=== PATIENT | female | born 1990 | race Asian ===

== ENCOUNTER 2017-05-29 05:07 | Emergency (ER) | payer OTHER ==
[~2017-05-29] VITALS: Ht 165.1 cm; Wt 50.0 kg
[~2017-05-29 05:07] MED LIST: CYCL-36 PO; MOTR200T PO
[2017-05-29 05:11] VITALS: BP 111/79; PULSE 86; RESP 16; TEMP 98.1; O2SAT 99
[2017-05-29] MEDS ORDERED: SODIUM CHLOR 0.9% 1000 ML INJ 1,000 ML IV ONE (05:37)
[2017-05-29] MEDS ORDERED: ONDANSETRON HCL 4 MG/2 ML VIAL ONE (05:38)
[2017-05-29] MEDS ORDERED: ONDANSETRON HCL 4 MG/2 ML VIAL IVP ONE (05:45)
[2017-05-29] MEDS ORDERED: SODIUM CHLORIDE 0.9% FLUSH 10 ML FLUSH IVF PRN (05:45)
[2017-05-29] MEDS ORDERED: diphenhydrAMINE HCL 50 MG/ML VIAL IV PUSH ONE (05:45)
[2017-05-29 06:06] LABS: AUTOMATED NEUTROPHIL # 3.1 TH/MM3 (1.8-7.7); BASOPHIL # 0.1 TH/MM3 (0-0.2); BASOPHIL % 0.9 % (0.0-2.0); EOSINOPHIL # 0.8 TH/MM3 (0-0.4); EOSINOPHIL % 10.8 % (0.0-4.0); HEMATOCRIT 41.3 % (35.0-46.0); HEMO FLAGS DIFF FINAL; LYMPH % 38.7 % (9.0-44.0); LYMPHOCYTE # 2.7 TH/MM3 (1.0-4.8); MEAN CELL VOLUME 94.4 FL (80.0-100.0); MEAN CORPUSCULAR HEMOGLOBIN 32.2 PG (27.0-34.0); MEAN CORPUSCULAR HGB CONC 34.1 % (32.0-36.0); MONO % 5.4 % (0.0-8.0); NEUT % 44.2 % (16.0-70.0); PLATELET COUNT 244 TH/MM3 (150-450); RED BLOOD COUNT 4.37 MIL/MM3 (4.00-5.30)
[2017-05-29] MEDS ORDERED: METOCLOPRAMIDE INJ 10 MG in SODIUM CHLORIDE 0.9% INJ 50 ML IV ONE (06:15)
--- NOTE | 2017-05-29 06:19 | RADRPT ---
EXAM DATE/TIME: 05/29/2017 05:47 [place] COMPARISON: No previous studies available for comparison. INDICATIONS : Dizziness and right side head pain. RADIATION DOSE: 30.05 CTDIvol (mGy) MEDICAL HISTORY : None SURGICAL HISTORY : None. ENCOUNTER: Initial ACUITY: 1 day PAIN SCALE: 7/10 LOCATION: cranial TECHNIQUE: Multiple contiguous axial images were obtained of the head. Using automated exposure control and adj ustment of the mA and/or kV according to patient size, radiation dose was kept as low as reasonably a chievable to obtain optimal diagnostic quality images. DICOM format image data is available electro nically for review and comparison. FINDINGS: CEREBRUM: The ventricles are normal for age. No evidence of midline shift, mass lesion, hemorrhage or acute in farction. No extra-axial fluid collections are seen. POSTERIOR FOSSA: The cerebellum and brainstem are intact. The 4th ventricle is midline. The cerebellopontine angle i s unremarkable. EXTRACRANIAL: The visualized portion of the orbits is intact. SKULL: The calvaria is intact. No evidence of skull fracture. CONCLUSION: Normal examination. Clint Nava MD on May 29, 2017 at 6:17 Board Certified Radiologist. This report was verified electronically.
[2017-05-29 06:32] LABS: APTT (PATIENT) 27.3 SEC (24.3-30.1); PROTHROMBIN TIME - PATIENT 10.6 SEC (9.8-11.6)
--- NOTE | 2017-05-29 06:33 | PD ---
HPI Chief Complaint: Headache Time Seen by Provider: 05:19 Travel History International Travel<30 days: No Contact w/Intl Traveler<30days: No Traveled to known affect area: No History of Present Illness HPI Patient is a 26 year old female who comes in complaining of headache, nausea and vomiting. She says it started a few hours ago. She says the pain is on the side of her head. She denies fever or chills. She says she has some dizziness. She says this has happened to her before when she was under a lot of stress, and she is currently under a lot of stress. She denies any trauma to her head. She denies drug or alcohol use. She denies any abdominal pain. She says she has had right sided back pain for a few months. She denies dysuria. PFSH Past Medical History Medical History: Denies Significant Hx Diminished Hearing: No Tetanus Vaccination: Unknown Influenza Vaccination: No ?: Not LMP: 4 WEEKS AGO Past Surgical History Other Surgery: Yes (RHINOPLASY 2X ) Social History Alcohol Use: Yes (OCASSIONALLY, ONCE A WEEK) Tobacco Use: Yes (1/2 PPD) Substance Use: No Allergies-Medications (Allergen,Severity, Reaction): Coded Allergies: No Known Allergies (Unverified , 05/29/17) Reported Meds & Prescriptions Reported Meds & Active Scripts Active Macrobid (Nitrofurantoin Monoh/Nitrofur Macro) 100 Mg Cap 100 Mg PO BID 10 Days Review of Systems Except as stated in HPI: all other systems reviewed are Neg General / Constitutional: No: Fever, Chills Eyes: No: Blurred Vision HENT: Positive: Headaches, Vertigo Cardiovascular: No: Chest Pain or Discomfort Respiratory: No: Shortness of Breath Gastrointestinal: Positive: Nausea, Vomiting, No: Abdominal Pain Genitourinary: Positive: Flank Pain, No: Dysuria Musculoskeletal: No: Pain Skin: No Rash, No Change in Pigmentation Neurologic: Positive: Dizziness, No: Weakness Physical Exam Narrative GENERAL: Awake and alert, in no acute distress. SKIN: Focused skin assessment warm/dry. HEAD: Atraumatic. Normocephalic. EYES: Pupils equal and round. No scleral icterus. EOMI, no nystagmus. ENT: Mucous membranes pink and moist. NECK: Trachea midline. No JVD. CARDIOVASCULAR: Regular rate and rhythm. No murmur appreciated. RESPIRATORY: No accessory muscle use. Clear to auscultation. Breath sounds equal bilaterally. GASTROINTESTINAL: Abdomen soft, non-tender, nondistended. MUSCULOSKELETAL: No obvious deformities. No clubbing. No cyanosis. No edema. Right CVA tenderness. NEUROLOGICAL: Awake and alert. No obvious cranial nerve deficits. Motor grossly within normal limits. Normal speech. PSYCHIATRIC: Appropriate mood and affect; insight and judgment normal. Data Data Last Documented VS Vital Signs Date Time Temp Pulse Resp B/P Pulse Ox O2 Delivery O2 Flow Rate FiO2 05/29/17 07:14 83 18 104/59 99 Room Air 05/29/17 05:11 98.1 Orders Ed Urine Pregnancytest Poc (05/29/17 05:37) Complete Blood Count With Diff (05/29/17 05:37) Comprehensive Metabolic Panel (05/29/17 05:37) Act Partial Throm Time (Ptt) (05/29/17 05:37) Prothrombin Time / Inr (Pt) (05/29/17 05:37) Urinalysis - C+S If Indicated (05/29/17 05:37) Ua Includes Microscopic (05/29/17 05:37) Ct Brain W/O Iv Contrast(Rout) (05/29/17 05:37) Ecg Monitoring (05/29/17 05:37) Iv Access Insert/Monitor (05/29/17 05:37) Oximetry (05/29/17 05:37) Ondansetron Inj (Zofran Inj) (05/29/17 05:45) Sodium Chloride 0.9% Flush (Ns Flush) (05/29/17 05:45) Sodium Chlor 0.9% 1000 Ml Inj (Ns 1000 M (05/29/17 05:37) Diphenhydramine Inj (Benadryl Inj) (05/29/17 05:45) Ondansetron Inj (Zofran Inj) (05/29/17 05:38) Alcohol (Ethanol) (05/29/17 05:40) Metoclopramide Inj (Reglan Inj) (05/29/17 06:15) Ketorolac Inj (Toradol Inj) (05/29/17 07:00) Urine Culture (05/29/17 07:00) Nitrofurantoin Monohyd Macrocr (Macrobid (05/29/17 07:30) Labs Laboratory Tests Test 05/29/17 05/29/17 05/29/17 05:40 06:05 07:00 White Blood Count 7.0 TH/MM3 Red Blood Count 4.37 MIL/MM3 Hemoglobin 14.1 GM/DL Hematocrit 41.3 % Mean Corpuscular Volume 94.4 FL Mean Corpuscular Hemoglobin 32.2 PG Mean Corpuscular Hemoglobin 34.1 % Concent Red Cell Distribution Width 13.0 % Platelet Count 244 TH/MM3 Mean Platelet Volume 8.6 FL Neutrophils (%) (Auto) 44.2 % Lymphocytes (%) (Auto) 38.7 % Monocytes (%) (Auto) 5.4 % Eosinophils (%) (Auto) 10.8 % Basophils (%) (Auto) 0.9 % Neutrophils # (Auto) 3.1 TH/MM3 Lymphocytes # (Auto) 2.7 TH/MM3 Monocytes # (Auto) 0.4 TH/MM3 Eosinophils # (Auto) 0.8 TH/MM3 Basophils # (Auto) 0.1 TH/MM3 CBC Comment DIFF FINAL Differential Comment Sodium Level 139 MEQ/L Potassium Level 3.7 MEQ/L Chloride Level 107 MEQ/L Carbon Dioxide Level 22.4 MEQ/L Anion Gap 10 MEQ/L Blood Urea Nitrogen 11 MG/DL Creatinine 0.47 MG/DL Estimat Glomerular Filtration 159 ML/MIN Rate Random Glucose 89 MG/DL Calcium Level 8.2 MG/DL Total Bilirubin 0.2 MG/DL Aspartate Amino Transf 15 U/L (AST/SGOT) Alanine Aminotransferase 18 U/L (ALT/SGPT) Alkaline Phosphatase 87 U/L Total Protein 8.4 GM/DL Albumin 4.1 GM/DL Ethyl Alcohol Level 196 MG/DL Prothrombin Time 10.6 SEC Prothromb Time International 1.0 RATIO Ratio Activated Partial 27.3 SEC Thromboplast Time Urine Color YELLOW Urine Turbidity HAZY Urine pH 5.5 Urine Specific Harper 1.017 Urine Protein NEG mg/dL Urine Glucose (UA) NEG mg/dL Urine Ketones NEG mg/dL Urine Occult Blood NEG Urine Nitrite NEG Urine Bilirubin NEG Urine Urobilinogen LESS THAN 2.0 MG/DL Urine Leukocyte Esterase NEG Urine RBC 1 /hpf Urine WBC 3 /hpf Urine Squamous Epithelial 3 /hpf Cells Urine Calcium Oxalate Crystals MOD /hpf Urine Bacteria MOD /hpf Urine Mucus FEW /lpf Microscopic Urinalysis Comment CULTURE INDICATED MDM Medical Decision Making Medical Screen Exam Complete: Yes Emergency Medical Condition: Yes Medical Record Reviewed: Yes Differential Diagnosis gastroenteritis vs migraine vs vertigo vs UTI vs pyelonephritis Narrative Course Patient is a 26 year old female who comes in complaining of headache with nausea and vomiting. Exam shows no neurologic abnormalities. IV established, labs sent. Labs show no acute abnormalities other than an alcohol level of 196. Given IVF, Zofran, Benadryl. CT head performed shows no acute abnormalities. She reports some continued nausea. Given a dose of Reglan. Given Toradol for continued headache. Patient is able to drink water without vomiting. Advised to drink plenty of fluids. Advised to take Tylenol or Ibuprofen as needed for pain. Advised to avoid alcohol. Advised to follow up with a primary care doctor. Advised to return to the ED as needed for any worsening symptoms. Diagnosis Primary Impression: Nausea & vomiting Qualified Code: R11.2 - Non-intractable vomiting with nausea, unspecified vomiting type Additional Impressions: Headache Qualified Code: R51 - Acute nonintractable headache, unspecified headache type Alcohol intoxication Qualified Code: F10.920 - Alcoholic intoxication without complication Patient Instructions: Acute Headache (ED), Acute Nausea and Vomiting (ED), Alcohol Intoxication (DC), General Instructions Additional Instructions: Drink plenty of fluids. Avoid alcohol use. Take Tylenol or Ibuprofen as needed for pain. Follow up with a primary care doctor. Return to the ED as needed for any worsening symptoms. Scripts Nitrofurantoin Monohydrate Macrocrystals (Macrobid)100 Mg [id number] Mg PO BID 10 Days Ref 0 Prov:Zuleyma Jarrett DO 05/29/17 Disposition: 01 DISCHARGE HOME Condition: Stable Prudence Anguiano MD May 29, 2017 06:33
[2017-05-29 06:34] LABS: ANION GAP 10 MEQ/L (5-15); AST (GOT) 15 U/L (15-37); BICARBONATE 22.4 MEQ/L (21.0-32.0); BLOOD UREA NITROGEN 11 MG/DL (7-18); CHLORIDE 107 MEQ/L (98-107); GLOMERULAR FILTRATION RATE 159 ML/MIN (>89); POTASSIUM 3.7 MEQ/L (3.5-5.1); SODIUM (NA) 139 MEQ/L (136-145)
[2017-05-29 06:35] LABS: ALCOHOL 196 MG/DL (0-5); ALT (GPT) 18 U/L (10-53)
[2017-05-29 06:37] LABS: ALKALINE PHOSPHATASE 87 U/L (45-117); TOTAL BILIRUBIN ADULT 0.2 MG/DL (0.2-1.0)
[2017-05-29] MEDS ORDERED: KETOROLAC TROMETHAMINE 30 MG/ML (IVP) VIAL IV PUSH ONE (07:00)
[2017-05-29 07:14] VITALS: BP 104/59; PULSE 83; RESP 18; O2SAT 99
[2017-05-29 07:21] LABS: BACTERIA, URINE MOD /hpf; BLOOD, URINE NEG (NEG); CALCIUM OXALATE CRYSTALS,URINE MOD /hpf; COMMENT (UR) CULTURE INDICATED; CULTURE IF INDICATED CULTURE INDICATED; GLUCOSE,URINE NEG (NEG); KETONE, URINE NEG (NEG); MUCUS URINE FEW /lpf (OCC); NITRITE,URINE NEG (NEG); PH, URINE 5.5 (5.0-8.5); SQUAMOUS EPITHELIAL CELL URINE 3 /hpf (0-5); URINE COLOR YELLOW (YELLW/STRAW)
[2017-05-29] MEDS ORDERED: NITROFURANTOIN MONOHYD MACROCR 100 MG CAP PO ONE (07:30)
[2017-05-29] MEDS ORDERED: MACR100C2 PO (07:30)
--- NOTE | 2017-05-29 07:30 | PD ---
Data Data Last Documented VS Vital Signs Date Time Temp Pulse Resp B/P Pulse Ox O2 Delivery O2 Flow Rate FiO2 05/29/17 07:14 83 18 104/59 99 Room Air 05/29/17 05:11 98.1 Orders Ed Urine Pregnancytest Poc (05/29/17 05:37) Complete Blood Count With Diff (05/29/17 05:37) Comprehensive Metabolic Panel (05/29/17 05:37) Act Partial Throm Time (Ptt) (05/29/17 05:37) Prothrombin Time / Inr (Pt) (05/29/17 05:37) Urinalysis - C+S If Indicated (05/29/17 05:37) Ua Includes Microscopic (05/29/17 05:37) Ct Brain W/O Iv Contrast(Rout) (05/29/17 05:37) Ecg Monitoring (05/29/17 05:37) Iv Access Insert/Monitor (05/29/17 05:37) Oximetry (05/29/17 05:37) Ondansetron Inj (Zofran Inj) (05/29/17 05:45) Sodium Chloride 0.9% Flush (Ns Flush) (05/29/17 05:45) Sodium Chlor 0.9% 1000 Ml Inj (Ns 1000 M (05/29/17 05:37) Diphenhydramine Inj (Benadryl Inj) (05/29/17 05:45) Ondansetron Inj (Zofran Inj) (05/29/17 05:38) Alcohol (Ethanol) (05/29/17 05:40) Metoclopramide Inj (Reglan Inj) (05/29/17 06:15) Ketorolac Inj (Toradol Inj) (05/29/17 07:00) Urine Culture (05/29/17 07:00) Nitrofurantoin Monohyd Macrocr (Macrobid (05/29/17 07:30) Labs Laboratory Tests Test 05/29/17 05/29/17 05/29/17 05:40 06:05 07:00 White Blood Count 7.0 TH/MM3 Red Blood Count 4.37 MIL/MM3 Hemoglobin 14.1 GM/DL Hematocrit 41.3 % Mean Corpuscular Volume 94.4 FL Mean Corpuscular Hemoglobin 32.2 PG Mean Corpuscular Hemoglobin 34.1 % Concent Red Cell Distribution Width 13.0 % Platelet Count 244 TH/MM3 Mean Platelet Volume 8.6 FL Neutrophils (%) (Auto) 44.2 % Lymphocytes (%) (Auto) 38.7 % Monocytes (%) (Auto) 5.4 % Eosinophils (%) (Auto) 10.8 % Basophils (%) (Auto) 0.9 % Neutrophils # (Auto) 3.1 TH/MM3 Lymphocytes # (Auto) 2.7 TH/MM3 Monocytes # (Auto) 0.4 TH/MM3 Eosinophils # (Auto) 0.8 TH/MM3 Basophils # (Auto) 0.1 TH/MM3 CBC Comment DIFF FINAL Differential Comment Sodium Level 139 MEQ/L Potassium Level 3.7 MEQ/L Chloride Level 107 MEQ/L Carbon Dioxide Level 22.4 MEQ/L Anion Gap 10 MEQ/L Blood Urea Nitrogen 11 MG/DL Creatinine 0.47 MG/DL Estimat Glomerular Filtration 159 ML/MIN Rate Random Glucose 89 MG/DL Calcium Level 8.2 MG/DL Total Bilirubin 0.2 MG/DL Aspartate Amino Transf 15 U/L (AST/SGOT) Alanine Aminotransferase 18 U/L (ALT/SGPT) Alkaline Phosphatase 87 U/L Total Protein 8.4 GM/DL Albumin 4.1 GM/DL Ethyl Alcohol Level 196 MG/DL Prothrombin Time 10.6 SEC Prothromb Time International 1.0 RATIO Ratio Activated Partial 27.3 SEC Thromboplast Time Urine Color YELLOW Urine Turbidity HAZY Urine pH 5.5 Urine Specific [place] 1.017 Urine Protein NEG mg/dL Urine Glucose (UA) NEG mg/dL Urine Ketones NEG mg/dL Urine Occult Blood NEG Urine Nitrite NEG Urine Bilirubin NEG Urine Urobilinogen LESS THAN 2.0 MG/DL Urine Leukocyte Esterase NEG Urine RBC 1 /hpf Urine WBC 3 /hpf Urine Squamous Epithelial 3 /hpf Cells Urine Calcium Oxalate Crystals MOD /hpf Urine Bacteria MOD /hpf Urine Mucus FEW /lpf Microscopic Urinalysis Comment CULTURE INDICATED MDM Supervised Visit with IOANA: No Interpretation(s) Vital Signs Date Time Temp Pulse Resp B/P Pulse Ox O2 Delivery O2 Flow Rate FiO2 05/29/17 07:14 83 18 104/59 99 Room Air 05/29/17 07:14 83 18 104/59 99 Room Air 05/29/17 07:14 83 18 99 Room Air 05/29/17 05:11 98.1 86 16 111/79 99 Room Air CBC & BMP Diagram 05/29/17 05:40 Laboratory Tests Test 05/29/17 05/29/17 05/29/17 05:40 06:05 07:00 White Blood Count 7.0 TH/MM3 (4.0-11.0) Red Blood Count 4.37 MIL/MM3 (4.00-5.30) Hemoglobin 14.1 GM/DL (11.6-15.3) Hematocrit 41.3 % (35.0-46.0) Mean Corpuscular Volume 94.4 FL (80.0-100.0) Mean Corpuscular Hemoglobin 32.2 PG (27.0-34.0) Mean Corpuscular Hemoglobin 34.1 % Concent (32.0-36.0) Red Cell Distribution Width 13.0 % (11.6-17.2) Platelet Count 244 TH/MM3 (150-450) Mean Platelet Volume 8.6 FL (7.0-11.0) Neutrophils (%) (Auto) 44.2 % (16.0-70.0) Lymphocytes (%) (Auto) 38.7 % (9.0-44.0) Monocytes (%) (Auto) 5.4 % (0.0-8.0) Eosinophils (%) (Auto) 10.8 % (0.0-4.0) Basophils (%) (Auto) 0.9 % (0.0-2.0) Neutrophils # (Auto) 3.1 TH/MM3 (1.8-7.7) Lymphocytes # (Auto) 2.7 TH/MM3 (1.0-4.8) Monocytes # (Auto) 0.4 TH/MM3 (0-0.9) Eosinophils # (Auto) 0.8 TH/MM3 (0-0.4) Basophils # (Auto) 0.1 TH/MM3 (0-0.2) CBC Comment DIFF FINAL Differential Comment Sodium Level 139 MEQ/L (136-145) Potassium Level 3.7 MEQ/L (3.5-5.1) Chloride Level 107 MEQ/L (98-107) Carbon Dioxide Level 22.4 MEQ/L (21.0-32.0) Anion Gap 10 MEQ/L (5-15) Blood Urea Nitrogen 11 MG/DL (7-18) Creatinine 0.47 MG/DL (0.50-1.00) Estimat Glomerular Filtration 159 ML/MIN Rate (>89) Random Glucose 89 MG/DL (74-106) Calcium Level 8.2 MG/DL (8.5-10.1) Total Bilirubin 0.2 MG/DL (0.2-1.0) Aspartate Amino Transf 15 U/L (15-37) (AST/SGOT) Alanine Aminotransferase 18 U/L (10-53) (ALT/SGPT) Alkaline Phosphatase 87 U/L (45-117) Total Protein 8.4 GM/DL (6.4-8.2) Albumin 4.1 GM/DL (3.4-5.0) Ethyl Alcohol Level 196 MG/DL (0-5) Prothrombin Time 10.6 SEC (9.8-11.6) Prothromb Time International 1.0 RATIO Ratio Activated Partial 27.3 SEC Thromboplast Time (24.3-30.1) Urine Color YELLOW (YELLW/STRAW) Urine Turbidity HAZY (CLEAR) Urine pH 5.5 (5.0-8.5) Urine Specific Hugo 1.017 (1.002-1.035) Urine Protein NEG mg/dL (NEG-TRACE) Urine Glucose (UA) NEG mg/dL (NEG) Urine Ketones NEG mg/dL (NEG) Urine Occult Blood NEG (NEG) Urine Nitrite NEG (NEG) Urine Bilirubin NEG (NEG) Urine Urobilinogen LESS THAN 2.0 MG/DL (LESS THAN 2.0) Urine Leukocyte Esterase NEG (NEG) Urine RBC 1 /hpf (0-3) Urine WBC 3 /hpf (0-5) Urine Squamous Epithelial 3 /hpf (0-5) Cells Urine Calcium Oxalate Crystals MOD /hpf (NONE) Urine Bacteria MOD /hpf (NONE) Urine Mucus FEW /lpf (OCC) Microscopic Urinalysis Comment CULTURE INDICATED Microbiology Date/Time Procedure Status Source Growth 05/29/17 07:00 Urine Culture Received Urine Random Urine Pending Last Impressions Head CT 05/29/17 0537 Signed Impressions: Service Date/Time: May 05:47 - CONCLUSION: Normal examination. Clint Nava MD Narrative Course Please see previous providers chart for full hpi. Patient currently pending UA. UA with positive urine bacteria, hazy urine, negative esterase, negative ketones , UC pending. plan to treat for uti. Patient re-evaluated, patient feeling much better, patient with complete resolution of symptoms at this time. Patient denies headache, nausea vomiting. Patient is tolerating oral fluids at this time. I reviewed all labs and all studies with patient in detail, patient will follow-up with primary care doctor and will return to emergency room as needed. Diagnosis Primary Impression: Nausea & vomiting Qualified Code: R11.2 - Non-intractable vomiting with nausea, unspecified vomiting type Additional Impressions: Alcohol intoxication Qualified Code: F10.920 - Alcoholic intoxication without complication Headache Qualified Code: R51 - Acute nonintractable headache, unspecified headache type UTI (urinary tract infection) Patient Instructions: General Instructions, Alcohol Intoxication (DC), Acute Headache (ED), Acute Nausea and Vomiting (ED) Additional Instruction: Drink plenty of fluids. Avoid alcohol use. Take Tylenol or Ibuprofen as needed for pain. Follow up with a primary care doctor. Return to the ED as needed for any worsening symptoms. Scripts Nitrofurantoin Monohydrate Macrocrystals (Macrobid)100 Mg [id number] Mg PO BID 10 Days Ref 0 Prov:Zuleyma Jarrett DO 05/29/17 Disposition: 01 DISCHARGE HOME Condition: Stable Zuleyma Jarrett DO May 29, 2017 07:30
== END 2017-05-29 07:52 | disposition home or self-care (01) ==
LOC: NEPC 05:07
DX: F10.129 Alcohol abuse with intoxication, unspecified (principal); N39.0 Urinary tract infection, site not specified; B96.89 Other specified bacterial agents as the cause of diseases classified elsewhere; F17.200 Nicotine dependence, unspecified, uncomplicated; R51 Headache; R11.2 Nausea with vomiting, unspecified; R10.9 Unspecified abdominal pain; Y90.6 Blood alcohol level of 120-199 mg/100 ml
CPT/HCPCS: 70450; 80053; 80307; 81001; 84703; 85025; 85610; 85730; 87086; 96361; 96365; 96375; 99285; J1200; J1885; J2405; J2765; J7030

== ENCOUNTER 2018-04-13 16:12 | Emergency (ER) | payer SELFPAY ==
[~2018-04-13] VITALS: Ht 167.6 cm; Wt 59.0 kg
[~2018-04-13 16:12] MED LIST changes: -CYCL-36 PO; +MACR100C2 PO; -MOTR200T PO
[2018-04-13 16:15] VITALS: BP 127/58; PULSE 107; RESP 14; TEMP 97.3; O2SAT 99
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
[2018-04-13] MEDS ORDERED: ACETAMINOPHEN 325 MG TAB PO ONE (21:00)
[2018-04-13] MEDS ORDERED: MOBI7.5T PO (21:30)
[2018-04-13 22:24] VITALS: BP 101/75; PULSE 68; RESP 16; O2SAT 100
[2018-04-13] MEDS ORDERED: diphenhydrAMINE HCL 50 MG CAP PO ONE (23:30)
[2018-04-14 06:23] VITALS: BP 95/56; PULSE 60; RESP 16; O2SAT 96
--- NOTE | 2018-04-14 09:32 | PD ---
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 Ed documentation is reviewed and included here " The patient states that she has been the victim of rumors at school. She states that she argued with her boyfriend today. She states that she made some cuts on her left wrist. She endorses history of depression and agoraphobia " a few years ago" when she had a stalker while living in [place]." Patient was placed under an involuntary status by ED provider when patient was requesting to leave the ED. She was monitored in secure environment and presented no further behavioral concerns, no further self injuries behavior, no suicidality. No toxicology available for review. No blood alcohol level obtained. EMR reviewed. The patient was last seen May 29, 2017 when she came in complaining of nausea and vomiting and was found to be intoxicated with a blood alcohol level 196. Patient is seen. She is clinically sober. Alert, oriented, cooperative and engaging. There is no evidence of any psychosis, no kamaljit or hypomania. She states" I cut my wrist. I was feeling depressed. I did not plan to . People I trust were against me and my boyfriend does not trust me. We broke up yesterday." Patient describes what appears to be some difficulty with her relationship and school but I do not get a sense that its paranoia in anyway. The patient is not suicidal or homicidal. The cuts that were inflicted with a very superficial in nature. PFSH Past Medical History Medical History: Denies Significant Hx Diminished Hearing: No Tetanus Vaccination: Unknown Influenza Vaccination: No ?: Not LMP: 510 Past Surgical History Surgical History: No Previous Surgery Other Surgery: Yes (RHINOPLASY 2X ) Psychiatric History Psychiatric History Hx Psychiatric Treatment: Received treatment 2 years ago after an incident of stalking. She is unable to remember what medications he took but did states she took him for 2 months and it was to help her be relaxed. No previous history of self-injurious behavior. No history of suicide attempt History of Inpatient Treatment: No Guns or firearms in home: No Social History Patient is single. She is from [place]. She is a student at a local [employer]. Hx Alcohol Use: Yes (Reports she drinks about half a bottle of whiskey every 2 weeks or so.) Hx Tobacco Use: Yes Hx Substance Use: No Substance Use Type: Alcohol Hx of Substance Use Treatment: No Family Psychiatric History Negative Allergies-Medications (Allergen,Severity, Reaction): Coded Allergies: No Known Allergies (Unverified , 05/29/17) Reported Meds & Prescriptions Reported Meds & Active Scripts Active Reported Mobic (Meloxicam) 7.5 Mg Tab 7.5 Mg PO DAILY Review of Systems Psychiatric: DENIES: Anxiety, Confusion, Mood changes, Depression, Hallucinations, Agitation, Suicidal Ideation, Homicidal Ideation, Delusions Except as stated in HPI: all other systems reviewed are Neg Mental Status Examination Appearance: Disheveled Consciousness: Alert Orientation: x4 Motor Activity: Normal gait Speech: Unremarkable Language: Adequate Fund of Knowledge: Adequate Attention and Concentration: Adequate Memory: Unremarkable Mood: Appropriate Affect: Appropriate Thought Process & Associations: Intact, Logical, Goal directed Thought Content: Appropriate Hallucination Type: None Delusion Type: None Suicidal Ideation: No Suicidal Plan: No Suicidal Intention: No Homicidal Ideation: No Homicidal Plan: No Homicidal Intention: No Insight: Fair Judgment: Adequate [facility] Medical Decision Making Medical Record Reviewed: Yes Assessment/Plan 27 year old, single, Croatian , 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 Ed documentation is reviewed and included here " The patient states that she has been the victim of rumors at school. She states that she argued with her boyfriend today. She states that she made some cuts on her left wrist. She endorses history of depression and agoraphobia " a few years ago" when she had a stalker while living in [place]." Patient was placed under an involuntary status by ED provider when patient was requesting to leave the ED. She was monitored in secure environment and presented no further behavioral concerns, no further self injuries behavior, no suicidality. Patient denies any significant symptoms of depression or anxiety and presents no objective clinical signs of such. She does not present any evidence of any psychosis. I suspect alcohol was also involved in this recent episode. At this time the patient does not present any evidence of unstable mental illness and is requesting to be discharged. 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 Patient is seen. BA is lifted. Psychiatrically cleared for discharge from ED. Orders Orders Psych Screen (04/13/18 17:30) Ed Urine Pregnancytest Poc (04/13/18 17:30) Acetaminophen (Tylenol) (04/13/18 21:00) Diphenhydramine (Benadryl) (04/13/18 23:30) Diet Regular Basic (04/14/18 Breakfast) Results Vital Signs Date Time Temp Pulse Resp B/P (MAP) Pulse Ox O2 Delivery O2 Flow Rate FiO2 04/14/18 06:23 60 16 95/56 (69) 96 Room Air 04/13/18 22:24 68 16 101/75 (84) 100 Room Air 04/13/18 16:15 97.3 107 14 127/58 (81) 99 Diagnosis Primary Impression: Adjustment disorder Psychiatrically Cleared: Yes Med/ Other Pt Specific Info: No Meds Exist/No RX given Disposition: 01 DISCHARGE HOME Condition: Stable Problem Qualifiers Primary Impression: Adjustment disorder Qualified Codes: F43.25 - Adjustment disorder with mixed disturbance of emotions and conduct Misa Pickering Apr 14, 2018 09:31
== END 2018-04-14 10:28 | disposition home or self-care (01) ==
LOC: NEPJ 16:12
DX: F43.25 Adjustment disorder with mixed disturbance of emotions and conduct (principal); S61.512A Laceration without foreign body of left wrist, initial encounter; X78.9XXA Intentional self-harm by unspecified sharp object, initial encounter
CPT/HCPCS: 99283; Q0163